=== PATIENT | female | born 1965 | race Caucasian/White ===

== ENCOUNTER 2019-06-09 21:03 | Emergency (ER) | payer SELFPAY ==
[2019-06-09] MEDS ORDERED: CITA-156 PO (21:17)
[2019-06-09] MEDS ORDERED: CYCLOBENZAPRINE HCL 10 MG TAB PO ONE (21:55)
[2019-06-09] MEDS ORDERED: KETOROLAC 60 MG/2 ML VIAL IM ONE (21:55)
--- NOTE | 2019-06-09 21:56 | ER Report ---
History and Physical Time Seen By MD: 21:40 Hx. of Stated Complaint: STATES LOWER BACK PAIN FROM PICKIN GUP THINGS SHE SHOULDNT HAVE. STATES SHE USUALLY USES ICE FOR BACK PAIN. HAS A KNOWN L4-L5 HERNIATED DISC HPI/ROS CHIEF COMPLAINT: Back pain HISTORY OF PRESENT ILLNESS: 53-year-old female reports that she has history of L4 and L5 disc herniation. She has had no prior back surgery. She last had significant back pain similar to this one year ago. She usually treats just with ice. She has occasionally had a shot that she believes is Toradol. She does not take other medications for back pain. 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 She exacerbated her back pain yesterday, stating that she has been lifting things that she shouldn't have. She tried ice today but it did not help. She has pain that she states is sciatica that radiates down both legs intermittently. She has no incontinence, numbness, weakness. She has had no fevers or chills. She has had no change in urination. She has had no nausea, vomiting, fevers. She has had no recent trauma. REVIEW OF SYSTEMS: Constitutional: No fever, no chills. Eyes: No discharge. ENT: No sore throat. Cardiovascular: No chest pain, no palpitations. Respiratory: No cough, no shortness of breath. Gastrointestinal: No abdominal pain, no vomiting. Genitourinary: no dysuria Musculoskeletal: above Skin: No rashes. Neurological: No headache. Remainder of the 14 system rev: Yes Allergies: Coded Allergies: No Known Drug Allergies (Unverified , 06/09/19) Home Meds Active Scripts Diazepam (VALIUM) 5 Mg Tablet, 5 MG PO 2-3XD, #10 TAB Prov:MILVIA ROCHA MD 06/09/19 Reported Medications Citalopram Hydrobromide (CELEXA) 20 Mg Tablet, 20 MG PO QDAY, #5 TAB 06/09/19 Reviewed Nurses Notes: Yes Constitutional Vital Sign - Last 24 Hours 06/09/19 06/09/19 06/09/19 21:14 21:30 23:08 Temp 97.9 Pulse 90 80 75 Resp 20 12 B/P (MAP) 132/76 106/64 (78) Pulse Ox 90 93 91 O2 Delivery Room Air Room Air Physical Exam General Appearance: The patient is alert, has no immediate need for airway protection and no signs of toxicity. [ ] Eyes: Pupils equal and round no pallor or injection. ENT, Mouth: Mucous membranes are moist. Respiratory: There are no retractions, lungs are clear to auscultation. Cardiovascular: Regular rate and rhythm. Gastrointestinal: Abdomen is soft and non tender, no masses, bowel sounds normal. Neurological: alert, oriented x 3, moves all extremities, no focal weakness or paresthesias Skin: Warm and dry, no rashes. Musculoskeletal: Extremities are nontender, nonswollen and have full range of motion. Pt has ttp left sciatic and midline. nl sensation throughout 2+ patella reflexes bilat, no foot drop. SLR exacerbates pain bilaterally; + SLR on right DIFFERENTIAL DIAGNOSIS: After history and physical exam differential diagnosis was considered for cauda equina, fracture, tumor, infection, renal pathology, aaa, or other emergent cause of back pain. Medical Decision Making ED Course/Re-evaluation ED Course 53 f presents with back pain without high risk features for cauda equina, aaa, or other emergent etiology. Though minimally improved, upon reassessment she wishes to be dc'd and rest; I offered valium as musc relaxant which pt unders tands precautions regarding; understands f/u and srp's. Decision to Disposition Date: Jun 09, 2019 Decision to Disposition Time: 22:56 Depart Departure Latest Vital Signs Vital Signs Date Time Temp Pulse Resp B/P (MAP) Pulse Ox O2 Delivery O2 Flow Rate FiO2 06/09/19 23:08 75 12 106/64 (78) 91 Room Air 06/09/19 21:14 97.9 Impression: Primary Impression: Back pain Condition: Improved Disposition: HOME OR SELF-CARE New Scripts Diazepam (VALIUM) 5 Mg Tablet 5 MG PO 2-3XD, #10 TAB Prov: MILVIA ROCHA MD 06/09/19 Departure Forms: Medications Reconciliation, Patient Portal Information, ER Transition Record Patient Instructions: Acute Low Back Pain (ED) Additional Instructions: As we discussed, I recommend 600mg ibuprofen every 8 hours, 650mg tylenol every hours as needed for pain. Do not drive while taking valium. Return or follow up immediately for incontinence, weakness, uncontrolled pain, or any concerns. Problem Qualifiers Primary Impression: Back pain Back pain location: low back pain Chronicity: acute Back pain laterality: right Sciatica presence: with sciatica Sciatica laterality: sciatica of right side Qualified Codes: M54.41 - Lumbago with sciatica, right side MILVIA ROCHA MD Jun 09, 2019 21:56
[2019-06-09] MEDS ORDERED: DIA5 PO (22:59)
[2019-06-09] MEDS ORDERED: DIAZEPAM 5 MG TAB TH 2 TAB/BOTTLE PO ONE (23:00)
[2019-06-09 23:08] VITALS: BP 106/64
== END 2019-06-09 23:02 | disposition home or self-care (01) ==
LOC: ER 21:26
DX: M54.41 Lumbago with sciatica, right side (principal)
CPT/HCPCS: 96372; 99283; J1885